=== PATIENT | female | born 1995 | race Caucasian/White ===

== ENCOUNTER 2016-05-23 11:06 | Emergency (ER) | payer BC ==
[~2016-05-23] VITALS: Ht 157.5 cm; Wt 61.6 kg
[2016-05-23 11:09] VITALS: BP 133/81; PULSE 101; TEMP 36.9; O2SAT 99; Ht 157.5 cm; Wt 61.6 kg
--- NOTE | 2016-05-23 11:19 | EMERGENCY ROOM VISIT NOTE ---
ED Visit Note First contact with patient: 11:11 CHIEF COMPLAINT: Ankle pain HISTORY OF PRESENT ILLNESS: This 21 year old female patient presents to the emergency department ambulatory after sustaining an injury to the right ankle and foot with a twisting, inversion motion when she was walking down the stairs last night and tripped down 3 stairs. Complains of moderate swelling and pain. The patient complains of pain along the outside of the ankle. The patient does have pain of the foot. The patient rates the pain as sharp and 7/10. There was no audible pop. The patient is able to bear weight on the foot. Constant pain, worse with movement, weight bearing, and the dependent position. No knee pain, the patient is able to move their toes. No numbness or weakness of the foot, no laceration. The patient has had a previous injury to this ankle. The patient has taken nothing for the pain. She states she hit her back but feels as though it is a bruise and denies any significant pain. REVIEW OF SYSTEMS: A 6 system review of systems was completed with positives and pertinent negatives listed in the HPI. ALLERGIES: None MEDICATIONS: None PMH: None SOCIAL HISTORY: The patient is a student. PHYSICAL EXAM: Vital Signs: Reviewed Nurse's notes, vital signs stable. GENERAL : This is a 21-year-old female, no acute distress, but appears in pain, well- developed, well-nourished. MENTAL STATUS: Alert, oriented to person place and time, and cooperative. MUSCULOSKELETAL: The right ankle is swollen and tender over the lateral malleolus, but the skin is intact and there is no ligamentous instability. There is mild fifth metatarsal tenderness. There is no tenderness over the rest of the foot. There is no calf or tibia/fibular tenderness. There is no visual deformity. The foot and toes are warm and well- perfused. Dorsalis pedis pulse 2+. Sensation to pain and light touch is intact. Capillary refill less than 2 seconds. EMERGENCY DEPARTMENT COURSE: I examined the patient. X-rays of the right ankle and foot were reviewed by myself and read by radiology and reveal no fracture dislocation. A gel splint was applied to the ankle under my direction and the position was satisfactory. Neurovascular status was rechecked and intact. She was instructed on the use of crutches. The patient was discharged home in good condition. RIGHT ANKLE 3 VIEWS CLINICAL HISTORY: Fall with right ankle injury. FINDINGS: 3 views of the right ankle are obtained. No prior studies are available for comparison at the time of dictation. The skeletal structures are well mineralized. No fracture is seen. The ankle mortise is intact. There is a small joint effusion. Mild soft tissue swelling is present around the ankle. IMPRESSION: Mild soft tissue swelling and joint effusion. No fracture is seen. RIGHT FOOT 3 VIEWS CLINICAL HISTORY: Right foot injury. FINDINGS: 3 views of the right foot are obtained. No prior studies are available for comparison at the time of dictation. The skeletal structures are well mineralized. No fracture is seen. The joint spaces of the foot are well-maintained. Mild soft tissue swelling is present around the ankle. IMPRESSION: No acute bony abnormality is seen in the right foot. Current/Historical Medications No Active Prescriptions or Reported Meds Allergies Coded Allergies: No Known Allergies (Unverified , 05/23/16) Vital Signs Date Time Temp Pulse Resp B/P Pulse Ox O2 Delivery O2 Flow Rate FiO2 05/23/16 11:09 36.9 101 20 133/81 99 Room Air Departure Information Impression Primary Impression: Ankle sprain Dispostion Home / Self-Care Condition GOOD Prescriptions No Active Prescriptions or Reported Meds Referrals No Doctor, Assigned (PCP) Viet Mcelroy D.O. Patient Instructions Ankle Sprain, [facility] Additional Instructions Ice and elevate ankle for swelling and pain. Crutches with weight bearing as tolerated. Wear the splint 7-14 days or until pain subsides. Ibuprofen 600 mg every 6 hrs for pain. If ankle has not improved within 5-7 days, follow-up family doctor or orthopedic surgeon for further evaluation and management.
--- NOTE | 2016-05-23 12:04 | DIAGNOSTIC IMAGING REPORT ---
RIGHT ANKLE 3 VIEWS CLINICAL HISTORY: Fall with right ankle injury. FINDINGS: 3 views of the right ankle are obtained. No prior studies are available for comparison at the time of dictation. The skeletal structures are well mineralized. No fracture is seen. The ankle mortise is intact. There is a small joint effusion. Mild soft tissue swelling is present around the ankle. IMPRESSION: Mild soft tissue swelling and joint effusion. No fracture is seen. Electronically signed by: Roger Davalos M.D. 05/23/2016 12:02 PM Dictated Date/Time: 05/23/2016 12:01 PM
--- NOTE | 2016-05-23 12:11 | DIAGNOSTIC IMAGING REPORT ---
RIGHT FOOT 3 VIEWS CLINICAL HISTORY: Right foot injury. FINDINGS: 3 views of the right foot are obtained. No prior studies are available for comparison at the time of dictation. The skeletal structures are well mineralized. No fracture is seen. The joint spaces of the foot are well-maintained. Mild soft tissue swelling is present around the ankle. IMPRESSION: No acute bony abnormality is seen in the right foot. Electronically signed by: Roger Davalos M.D. 05/23/2016 12:08 PM Dictated Date/Time: 05/23/2016 12:08 PM
== END 2016-05-23 12:23 | disposition home or self-care (01) ==
LOC: C.EDB 11:08 → C.EDD 12:23
DX: S93.401A Sprain of unspecified ligament of right ankle, initial encounter (principal); W10.8XXA Fall (on) (from) other stairs and steps, initial encounter